=== PATIENT | female | born 1960 | race Caucasian/White ===

== ENCOUNTER 2018-01-24 14:59 | Inpatient (IN) | payer OTHER ==
[~2018-01-24] VITALS: Ht 160 cm; Wt 79.2 kg
[~2018-01-24 14:59] MED LIST: GYNODIOL1 MG; PRILOSEC 20 MG20 MG PO; ZOLOFT50 MG PO
[2018-01-24 15:04] VITALS: BP 133/69
[2018-01-24] MEDS ORDERED: XANAX1 MG PO (15:09)
[2018-01-24] MEDS ORDERED: CRESTOR10 MG PO (15:09)
[2018-01-24 15:23] LABS: HEMATOCRIT 38.6 % (37.0-47.0); HEMOGLOBIN 12.6 gm/dL (12.0-15.0); MCH 28.6 pg (26.0-34.0); MCHC 32.6 g/dL (28.0-37.0); MCV 87.8 fL (80.0-100.0); MPV 8.5 fl. (7.2-11.1); NUCLEATED RBCS 0 /100WBC; PLATELET COUNT* 264 thou/uL (150-400); RDW-CV 12.9 % (10.5-14.5)
[2018-01-24 15:27] LABS: ANION GAP 7 mmol/L (7-16); BUN 16 mg/dL (7-18); CALCIUM 8.9 mg/dL (8.5-10.1); CHLORIDE 105 mmol/L (98-107); CO2 27 mmol/L (21-32); CREATININE 0.7 mg/dL (0.6-1.3); GLUCOSE 87 mg/dL (70-99); POTASSIUM 3.8 mmol/L (3.5-5.1); SODIUM 139 mmol/L (136-145)
[2018-01-24 15:30] LABS: APTT 27.6 Seconds (25.0-31.3); INR 0.9; PROTIME 9.6 Seconds (9.20-11.50)
[2018-01-24 15:46] LABS: ALBUMIN 3.4 g/dL (3.4-5.0); ALKALINE PHOSPHATASE 80 U/L (46-116); CK-MB MASS 1.3 ng/mL (<0.5-3.6); LIPASE 219 U/L (73-393); MAGNESIUM 1.9 mg/dL (1.8-2.4); NT-PRO BRAIN NAT PEPTIDE 106 pg/mL (<300); SGOT 19 U/L (15-37); SGPT 22 U/L (30-65); TOTAL BILIRUBIN 0.2 mg/dL (<0.1-1.0); TROPONIN-I LEVEL <0.06 ng/mL (<0.06)
[2018-01-24 16:11] LABS: ABSOLUTE EOSINOPHILS 0.4 thou/uL (0.0-0.7); ABSOLUTE LYMPHOCYTES 12.2 thou/uL (0.8-5.3); ABSOLUTE MONOCYTES 1.3 thou/uL (0.0-1.2); ABSOLUTE NEUTROPHILS 7.1 thou/uL (1.6-8.1); PLATELET ESTIMATE ADEQUATE
[2018-01-24 21:08] VITALS: BP 109/55
[2018-01-24 21:20] VITALS: BP 119/56
[2018-01-24] MEDS ORDERED: UNICOMPLEX M TA1 TA1 PO (21:32)
[2018-01-24 23:17] VITALS: BP 109/53
[2018-01-25 04:00] VITALS: BP 94/30
[2018-01-25 04:41] VITALS: BP 105/50
[2018-01-25 07:55] VITALS: BP 92/50
--- NOTE | 2018-01-25 10:00 | EKG ---
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
--- NOTE | 2018-01-25 10:15 | EKG ---
[place] [address] ELECTROCARDIOGRAM REPORT Name: DESTINY CHAVEZ Room: [address] ADM IN .R.#: [id number] Admission: 01/24/18 Attend Phys: Katy Rubalcava MD Discharge: Date of : 64 Report #: [id number] THIS REPORT FOR: //name// [facility] Test Date: 2018-01-25 Test Time: 09:08:22 Pat Name: DESTINY CHAVEZ Department: Room: [address] Gender: F Superintendent Electric Power: : 1960 Requested By: Olinda Case Order Number: [id number] MD: Butch Castaneda Measurements Intervals [place] Rate: 58 P: 43 [place]: 181 QRS: 66 QRSD: 105 T: 52 QT: 438 QTc: 431 Interpretive Statements Sinus bradycardia Electronically Signed On 01-25-2018 10:15:00 CDT by Butch Castaneda [email or web address] <ELECTRONICALLY SIGNED> By: Butch Castaneda MD, [facility] 01/25/18 1015 0908 0908 Butch Castaneda MD, FACC /EPI
[2018-01-25 11:50] VITALS: BP 104/42
--- NOTE | 2018-01-25 12:56 | 2DMMODE ---
[place] [address] 2 D/M-MODE ECHOCARDIOGRAM Name: DESTINY CHAVEZ Room: [address] IN [facility]#: [id number] Admission: 01/24/18 Attend Phys: Katy Rubalcava, Discharge: Date of : 64 Date of Service: 01/25/18 1255 Report #: [id number] THIS REPORT FOR: //name// APPROVED REPORT Study performed: 01/25/2018 10:07:47 EXAM: Comprehensive 2D, Doppler, and color-flow Echocardiogram Patient Location: In-Patient Room #: 220 Status: routine BSA: 1.82 HR: 50 bpm BP: 92/50 mmHg Rhythm: NSR Other Information Study Quality: Good Indications Atrial Fibrillation 2D Dimensions LVEF(%): 76.21 (>50%) IVSd: 8.16 (7-11mm) LVOT Diam: 19.47 (18-24mm) LVDd: 35.89 mm PWd: 8.93 (7-11mm) Ascending Ao: 25.31 (22-36mm) LVDs: 20.08 (25-40mm) Aortic Root: 25.83 mm Jeronimo's LVEF: 76.21 % Volumes Left Atrial Volume (Systole) LA ESV Index: 24.40 mL/m2 Aortic Valve AoV Peak Chin.: 1.22 m/s AO Peak Gr.: 5.98 mmHg LVOT Max P.59 mmHg AO Mean Gr.: 3.20 mmHg LVOT Mean P.06 mmHg LVOT Max V: 1.07 m/s AO V2 VTI: 27.13 cm LVOT Mean V: 0.64 m/s [place] (VTI): 2.77 cm2 LVOT V1 VTI: 25.23 cm Mitral Valve E/A Ratio: 1.47 [place] [address] 2 D/M-MODE ECHOCARDIOGRAM Name: RENAE CHAVEZPalmer Montenegro Room: [address] IN [facility].#: [id number] Admission: 01/24/18 Attend Phys: Katy Rubalcava, Discharge: Date of : 64 Date of Service: 01/25/18 1255 Report #: [id number] MV Decel. Time: 211.34 ms MV E Max Chin.: 0.61 m/s MV PHT: 61.29 ms MVA (PHT): 3.59 cm2 TDI E/Lateral E': 4.36 E/Medial E': 5.55 Medial E' Chin.: 0.11 m/s Lateral E' Chin.: 0.14 m/s Pulmonary Valve PV Peak Chin.: 0.99 m/s PV Peak Gr.: 3.89 mmHg Tricuspid Valve RAP Estimate: 5.00 mmHg TR Peak Gr.: 18.09 mmHg RVSP: 23.09 mmHg PA Pressure: 23.09 mmHg Left Ventricle The left ventricle is normal size. There is normal LV segmental wall motion. There is normal left ventricular wall thickness. Left ventricular systolic function is normal. LVEF is 55-60%. The left ventricular diastolic function is normal. Right Ventricle The right ventricle is normal size. The right ventricular systolic function is normal. Atria The left atrium size is normal. The right atrium size is normal. Aortic Valve The aortic valve is normal in structure. No aortic regurgitation is present. There is no aortic valvular stenosis. Mitral Valve The mitral valve is normal in structure. Trace mitral regurgitation. No evidence of mitral valve stenosis. Tricuspid Valve The tricuspid valve is normal in structure. Trace tricuspid regurgitation. No pulmonary hypertension. Pulmonic Valve The pulmonary valve is normal in structure. [place] [address] 2 D/M-MODE ECHOCARDIOGRAM Name: DESTINY CHAVEZ Room: [address] IN [facility]#: [id number] Admission: 01/24/18 Attend Phys: Katy Rubalcava, Discharge: Date of : 64 Date of Service: 01/25/18 1255 Report #: [id number] valvular regurgitation. Great Vessels The aortic root is normal in size. IVC is normal in size and collapses with >50% inspiration Pericardium There is no pericardial effusion. <Conclusion> The left ventricle is normal size. There is normal left ventricular wall thickness. Left ventricular systolic function is normal. LVEF is 55-60%. The left ventricular diastolic function is normal. Trace tricuspid regurgitation. No pulmonary hypertension. IVC is normal in size and collapses with >50% inspiration <ELECTRONICALLY SIGNED> By: Caleb Rosa MD, FACC 01/25/18 1255 1255 1255 Caleb Rosa MD, FACC /INF
[2018-01-25 20:00] VITALS: BP 104/63
[2018-01-26] VITALS: BP 101/43
[2018-01-26 04:00] VITALS: BP 100/57
[2018-01-26 05:13] LABS: HEMATOCRIT 38.6 % (37.0-47.0); HEMOGLOBIN 12.2 gm/dL (12.0-15.0); MCH 28.2 pg (26.0-34.0); MCHC 31.6 g/dL (28.0-37.0); MCV 89.2 fL (80.0-100.0); MPV 9.1 fl. (7.2-11.1); NUCLEATED RBCS 0 /100WBC; PLATELET COUNT* 256 thou/uL (150-400); RBC 4.33 mil/uL (4.20-5.00); RDW-CV 13.4 % (10.5-14.5); WBC 17.7 thou/uL (4.0-11.0)
[2018-01-26 05:28] LABS: CALCIUM 8.9 mg/dL (8.5-10.1); CREATININE 0.7 mg/dL (0.6-1.3); POTASSIUM 5.2 mmol/L (3.5-5.1)
[2018-01-26 05:40] LABS: ABSOLUTE EOSINOPHILS 0.2 thou/uL (0.0-0.7); ABSOLUTE LYMPHOCYTES 12.6 thou/uL (0.8-5.3); ABSOLUTE MONOCYTES 0.4 thou/uL (0.0-1.2); ABSOLUTE NEUTROPHILS 4.6 thou/uL (1.6-8.1); PLATELET ESTIMATE ADEQUATE
[2018-01-26 05:42] LABS: ANISOCYTOSIS 1+; POIKILOCYTOSIS 1+
[2018-01-26 08:00] VITALS: BP 96/49
[2018-01-26] MEDS ORDERED: ELIQUIS5 MG PO (11:18)
[2018-01-26] MEDS ORDERED: FLECAINIDE ACET50 M1 PO (11:18)
[2018-01-26 11:22] VITALS: BP 96/49
--- NOTE | 2018-01-26 15:46 | EKG ---
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 01/26/18 1546 Caleb Rosa MD, [facility] /EPI
== END 2018-01-26 12:15 | disposition home or self-care (01) | DRG 309 ==
LOC: M.ERS 14:59 → M.TBA-ER 18:24 → M.2W 18:24
PROVIDERS: Family Medicine; Internal Medicine; ADMIT Internal Medicine
DX: I48.91 Unspecified atrial fibrillation (principal); D68.59 Other primary thrombophilia; E78.00 Pure hypercholesterolemia, unspecified; Z85.6 Personal history of leukemia; Z90.3 Acquired absence of stomach [part of]; Z90.49 Acquired absence of other specified parts of digestive tract; Z87.891 Personal history of nicotine dependence; Z90.710 Acquired absence of both cervix and uterus; Z85.51 Personal history of malignant neoplasm of bladder; Z79.899 Other long term (current) drug therapy; Z88.1 Allergy status to other antibiotic agents; Z88.8 Allergy status to other drugs, medicaments and biological substances

== ENCOUNTER 2018-03-17 18:15 | Inpatient (IN) | payer OTHER ==
[~2018-03-17] VITALS: Ht 160 cm; Wt 80.3 kg
[~2018-03-17 18:15] MED LIST changes: +CRESTOR10 MG PO; +ELIQUIS5 MG PO; +FLECAINIDE ACET50 M1 PO; +UNICOMPLEX M TA1 TA1 PO; +XANAX1 MG PO
[2018-03-17 18:17] VITALS: BP 122/58
[2018-03-17 18:47] LABS: HEMATOCRIT 39.2 % (37.0-47.0); HEMOGLOBIN 12.8 gm/dL (12.0-15.0); MCH 28.4 pg (26.0-34.0); MCHC 32.6 g/dL (28.0-37.0); MCV 87.1 fL (80.0-100.0); MPV 8.5 fl. (7.2-11.1); NUCLEATED RBCS 1 /100WBC; PLATELET COUNT* 278 thou/uL (150-400); RDW-CV 13.4 % (10.5-14.5); WBC 20.7 thou/uL (4.0-11.0)
[2018-03-17 18:55] LABS: ANION GAP 6 mmol/L (7-16); BUN 15 mg/dL (7-18); CALCIUM 9.1 mg/dL (8.5-10.1); CHLORIDE 103 mmol/L (98-107); CO2 30 mmol/L (21-32); CREATININE 0.7 mg/dL (0.6-1.3); GLUCOSE 110 mg/dL (70-99); POTASSIUM 3.6 mmol/L (3.5-5.1); SODIUM 139 mmol/L (136-145)
[2018-03-17 19:06] LABS: ALBUMIN 3.7 g/dL (3.4-5.0); ALKALINE PHOSPHATASE 79 U/L (46-116); LIPASE 214 U/L (73-393); NT-PRO BRAIN NAT PEPTIDE 86 pg/mL (<300); SGOT 18 U/L (15-37); SGPT 24 U/L (30-65); TOTAL BILIRUBIN 0.2 mg/dL (<0.1-1.0); TOTAL PROTEIN 7.2 g/dL (6.4-8.2); TROPONIN-I LEVEL <0.06 ng/mL (<0.06)
[2018-03-17 19:21] LABS: ABSOLUTE EOSINOPHILS 0.2 thou/uL (0.0-0.7); ABSOLUTE LYMPHOCYTES 14.5 thou/uL (0.8-5.3); ABSOLUTE MONOCYTES 0.8 thou/uL (0.0-1.2); ABSOLUTE NEUTROPHILS 5.2 thou/uL (1.6-8.1)
[2018-03-17 19:22] LABS: PLATELET ESTIMATE ADEQUATE
[2018-03-17 20:10] VITALS: BP 107/54
[2018-03-17] MEDS ORDERED: FLECAINIDE ACET50 M1 PO (22:00)
[2018-03-18] VITALS: BP 98/47
--- NOTE | 2018-03-18 04:07 | NUR ---
PT RECIEVED FROM ED AT 2100. SAT MAINTAINED IN RA. ALERT AND ORINETED X 4. CALL LIGHT WITHIN REACH AND FALL PRECAUTIONS MAINTAINED. SR TO SR WITH 1D AV BLOCK RUNNING ON MONITOR. WILL CONTINUE TO MONITOR.
[2018-03-18 04:21] VITALS: BP 110/62
[2018-03-18 07:45] VITALS: BP 102/62
--- NOTE | 2018-03-18 10:20 | NUR ---
ASSUMED PT CARE AT 0730, FULL ASSESMENT DONE CHARTED. PT A/O X4, SHE DENIES PAIN THIS AM, VSS, SR/BBB ON THE MONITOR. PT WANTS TO GO HOME IF CARDIOLOGY WILL LET HER. PT UP AD JIA, ON RA, USES CALL LIGHT APPROPRIALTY. WILL CONTINUE WITH PLAN OF CARE.
[2018-03-18 12:05] VITALS: BP 119/46
--- NOTE | 2018-03-18 15:13 | NUR ---
Pt is A&O. Resides at home with her and kids. Active and independent. No DME. No hx of HH or SNF. Goal is home at dc, anticipate dc tomorrow. No needs anticipated.
[2018-03-18 15:40] VITALS: BP 104/58
--- NOTE | 2018-03-18 19:36 | NUR ---
PT SLEPT MOST OF THE AFTERNOON. STILL C/O ACHING IN HER LEGS, PT CONCERNED ABOUT LOW SODIUM. PT EDUCATED ON THE PLAN AND LABS. PT FALL RISK, BED ALARM ON. PT FORGETS TO USE CALL LIGHT. VSS, SR ON THE MONITOR. PLEASANT AND MORE AWAKE AT DINNER TIME. UPDATED DAUGHTER ON PLAN. REPORT GIVEN TO SYED ESCUDERO.
[2018-03-18 20:00] VITALS: BP 102/54
[2018-03-19 00:35] VITALS: BP 99/58
--- NOTE | 2018-03-19 03:50 | NUR ---
ASSUMED PT CARE AT 1930. NURSING ASSESSMENT COMPLETED AT START OF SHIFT. PT TRACING SINUS RHYTHM THIS SHIFT. VOICED NO CONCERNS, CALL LIGHT WITHIN REACH. HOURLY ROUNDING COMPLETED.
[2018-03-19 08:00] VITALS: BP 103/60
--- NOTE | 2018-03-19 10:25 | NUR ---
ASSUMED PT CARE AT 0730, FULL ASSESMENT DONE CHARTED. PT A/O X4, DENIES PAIN, C/O CONSTIPATION, STOOL SOFTNER GIVEN. PTS VSS, SR/1ST AVB ON THE MONITOR. PT WANTS TO DISCHARGE TODAY. PT UP WALKING IN HALLS. DISCHARGE ORDERS RECIEVED. WILL CONTINUE WITH PLAN OF CARE.
[2018-03-19] MEDS ORDERED: FLECAINIDE ACET50 M1 PO (10:34)
[2018-03-19 10:38] VITALS: BP 103/60
--- NOTE | 2018-03-19 11:46 | NUR ---
PT DISCHARGESD WITH BELONGINGS AND PERSCRIPTION WITH FAMILY AT APPROX 1140
--- NOTE | 2018-03-19 12:19 | CON ---
[address] [address] CONSULTATION Name: SCOTTDESTINY L Room: [address] IN .R.#: [id number] Admission: 03/17/18 Attend Phys: Jae Catalan MD Discharge: 03/19/18 Date of : 64 Report #: [id number] THIS REPORT FOR: //name// CC: Jae Nunez HISTORY OF PRESENT ILLNESS: I was asked by Dr. Catalan to see this 57-year-old white female in cardiology consultation for evaluation and treatment of chest pain. This lady has a history of a workup for similar symptoms including as well atrial fibrillation about 6 weeks ago at this hospital. At that time, she was found to have paroxysmal atrial fibrillation, was started on initially sotalol, but taken off sotalol because it made her hypotensive and she was put on flecainide. She has been on flecainide 50 mg b.i.d. At one point, she was on Eliquis. She was taken off Eliquis and then placed on aspirin. More recently, she was taken off aspirin because she does have a history of some stomach bypass procedure. She was shopping yesterday and became what she thought was hypoglycemic in that she felt lightheaded and weak and diaphoretic. She was hungry. She was profusely diaphoretic and her heart was racing. She got dizziness and tightness in the chest. The tightness in the chest was mild to at most moderate and only lasted a few minutes and then the presumed atrial fibrillation went away. This occurred around 5:30 p.m. The chest tightness was apparently worse with activity and better with rest and it did occur at rest. There was no associated shortness of breath. There was no nausea. Nitroglycerin was not tried. There was no radiation of the discomfort. Discomfort was substernal. She did have a nuclear stress test when she was here 6-7 weeks ago and it was negative from the nuclear point of view, but was said to be mildly positive from the EKG point of view. I have not seen those strips; I will see if I can find them and review them. She also had an echo that was unremarkable. She had an event recorder placed and it did show atrial fibrillation apparently. She is to get another event recorder when she leaves here today after an increase in her flecainide from 50 mg b.i.d. to 100 mg b.i.d. She does not have shortness of breath or syncope. She does have a past history of smoking. She does have hypercholesterolemia, but not diabetes or high blood pressure or family history of heart disease. She has not had renal disease or peripheral vascular disease, has never had a stroke or TIA. She does not have pain in her legs when she walks. She does not have open or nonhealing wounds. PAST MEDICAL HISTORY: As described above and includes the atrial fibrillation, what she terms as hyperlipidemia. She does have chronic lymphocytic leukemia, GERD, history of bladder cancer and a history of low blood pressure. She had a cholecystectomy in 2005, gastric sleeve procedure in 2012, tummy tuck in 2015, hysterectomy in 1999, bladder cancer surgery in 2015. She had melanoma in situ removed in 2017. ALLERGIES: SHE IS ALLERGIC TO NONSTEROIDALS, ALTHOUGH SHE IS REALLY NOT ALLERGIC, APPARENTLY SHE IS SENSITIVE TO THEM. SHE IS APPARENTLY ALLERGIC TO [address] [place] [address] CONSULTATION Name: DESTINY CHAVEZ Room: [address]#: [id number] Admission: 03/17/18 Attend Phys: Jae Catalan MD Discharge: 03/19/18 Date of : 64 Report #: [id number] ERYTHROMYCIN, AMOXICILLIN AND SHE IS SENSITIVE TO SOTALOL, IT LOWERS HER BLOOD PRESSURE TOO MUCH. HOME MEDICATIONS: Include Xanax 0.25 mg daily p.r.n., flecainide 50 mg b.i.d., a multivitamin with minerals b.i.d., omeprazole 40 mg daily, Crestor 10 mg daily and Zoloft 50 mg daily. REVIEW OF SYSTEMS: Positive for palpitations, chest discomfort, shortness of breath with exercise, and nearly passing out as well as CLL, seasonal allergies, medical allergies, arthritis with sciatica and wearing glasses. Otherwise, review of systems is negative for some 40 different complaints in 14 different system categories. Please see her review of systems form for details and negatives in review of systems. SOCIAL HISTORY: She is . 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 She does not smoke, drink or use illegal drugs. PHYSICAL EXAMINATION: GENERAL: She presents as well-developed, well-nourished white female, in no acute distress. VITAL SIGNS: Pulse is 59 and regular, blood pressure is 110/62, respirations 14 and regular, temperature is 97 degrees. HEENT: Her head was atraumatic. Eyes clear. NECK: Supple. There is no jugular venous distention or hepatojugular reflux. Thyroid is not enlarged. There is no adenopathy. SKIN: Warm and dry. Mucous membranes are moist. LUNGS: Clear to auscultation and percussion. HEART: Revealed normal first and second heart sounds. A soft S4. There is no S3. There are no murmurs, rubs, thrills, heaves or gallops. PMI is nondisplaced. ABDOMEN: Soft, flat, nontender, no palpable masses and no organomegaly. EXTREMITIES: Reveal no cyanosis, clubbing or edema. NEUROLOGIC: The patient mentated normally, talked normally, moved all extremities normally. LABORATORY DATA: Her EKG shows sinus bradycardia, otherwise it is a normal EKG, heart rate was 59. Chest x-ray was unremarkable. Troponins were all negative. IMPRESSION: 1. Chest discomfort, likely related to her atrial fibrillation. 2. Paroxysmal atrial fibrillation. 3. Hypercholesterolemia. 4. Chronic lymphocytic leukemia. RECOMMENDATION: She should have her flecainide increased to 100 mg b.i.d. We will keep her overnight to see if she tolerates that [place] [address] CONSULTATION Name: DESTINY CHAVEZ Room: [address]#: [id number] Admission: 03/17/18 Attend Phys: Jae Catalan MD Discharge: 03/19/18 Date of : 64 Report #: [id number] intolerant of medications. We will recheck an EKG to make sure her QT and QTc are not prolonged or that her QRS is not prolonged. She will get another event recorder to be sure whether or not her atrial fibrillation is being controlled. Thank you very much for asking me to see the patient. If there are any questions, please feel free to contact me. <ELECTRONICALLY SIGNED> By: Teddy Womack MD, FACC 03/19/18 1219 1203 [id number]. Cheo Womack MD, FACC /nt
--- NOTE | 2018-03-20 09:49 | EKG ---
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
--- NOTE | 2018-03-20 11:38 | EKG ---
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
== END 2018-03-19 11:30 | disposition home or self-care (01) | DRG 309 ==
LOC: M.ERS 18:15 → M.TBA-ER 18:59 → M.2W 18:59
PROVIDERS: Emergency Medicine Emergency Medical Services; ADMIT Internal Medicine
DX: I48.0 Paroxysmal atrial fibrillation (principal); C91.10 Chronic lymphocytic leukemia of B-cell type not having achieved remission; E78.00 Pure hypercholesterolemia, unspecified; Z90.49 Acquired absence of other specified parts of digestive tract; Z90.710 Acquired absence of both cervix and uterus; Z85.51 Personal history of malignant neoplasm of bladder; Z88.1 Allergy status to other antibiotic agents; Z88.8 Allergy status to other drugs, medicaments and biological substances; Z87.891 Personal history of nicotine dependence; Z79.82 Long term (current) use of aspirin; Z79.899 Other long term (current) drug therapy

== ENCOUNTER 2018-05-01 11:49 | Emergency (ER) | payer OTHER ==
[~2018-05-01] VITALS: Ht 160 cm; Wt 79.4 kg
[2018-05-01] MEDS ORDERED: ROBAXIN 750 MG750 M1 PO (13:58)
[2018-05-01] MEDS ORDERED: VOLTAREN GEL 1100 G2 TOP (13:58)
[2018-05-01 14:16] VITALS: BP 110/55
== END 2018-05-01 14:16 | disposition home or self-care (01) ==
LOC: M.ERS 11:49
DX: S16.1XXA Strain of muscle, fascia and tendon at neck level, initial encounter (principal); M54.5 Low back pain; E78.00 Pure hypercholesterolemia, unspecified; I48.91 Unspecified atrial fibrillation; Z90.49 Acquired absence of other specified parts of digestive tract; Z90.710 Acquired absence of both cervix and uterus; Z87.891 Personal history of nicotine dependence; Z88.1 Allergy status to other antibiotic agents; Z88.6 Allergy status to analgesic agent; Z88.8 Allergy status to other drugs, medicaments and biological substances; V49.59XA Passenger injured in collision with other motor vehicles in traffic accident, initial encounter; Y93.89 Activity, other specified; Y92.89 Other specified places as the place of occurrence of the external cause; Y99.8 Other external cause status

== ENCOUNTER 2018-11-21 15:20 | Emergency (ER) | payer OTHER ==
[~2018-11-21] VITALS: Ht 160 cm; Wt 77.1 kg
[~2018-11-21 15:20] MED LIST changes: +ROBAXIN 750 MG750 M1 PO; +VOLTAREN GEL 1100 G2 TOP
[2018-11-21] MEDS ORDERED: LIPITOR 20 MG T20 M1 PO (15:26)
[2018-11-21] MEDS ORDERED: ELIQUIS5 MG PO (15:27)
[2018-11-21] MEDS ORDERED: KEFLEX500 M1 PO (16:42)
[2018-11-21 16:55] VITALS: BP 133/58
== END 2018-11-21 16:56 | disposition home or self-care (01) ==
LOC: M.ERS 15:20
DX: S01.512A Laceration without foreign body of oral cavity, initial encounter (principal); E78.00 Pure hypercholesterolemia, unspecified; I48.91 Unspecified atrial fibrillation; Z88.1 Allergy status to other antibiotic agents; Z88.6 Allergy status to analgesic agent; Z88.8 Allergy status to other drugs, medicaments and biological substances; Z87.891 Personal history of nicotine dependence; Z90.49 Acquired absence of other specified parts of digestive tract; Z90.710 Acquired absence of both cervix and uterus; X58.XXXA Exposure to other specified factors, initial encounter; Y93.89 Activity, other specified; Y92.89 Other specified places as the place of occurrence of the external cause; Y99.8 Other external cause status